=== PATIENT | male | born 1945 | race Caucasian/White ===

== ENCOUNTER → 2017-01-08 | Outpatient (CLI) | payer MEDICARE, OTHER ==
[~2017-01-08] MED LIST: ASPI-515 PO
== END | disposition home or self-care (01) ==
LOC: CFH 10:29
PROVIDERS: ATTEND Internal Medicine Cardiovascular Disease
DX: R93.1 Abnormal findings on diagnostic imaging of heart and coronary circulation (principal); R00.2 Palpitations
CPT/HCPCS: 36415; 84436; 84481

== ENCOUNTER → 2017-02-07 | Outpatient (CLI) | payer MEDICARE, OTHER | END | disposition home or self-care (01) | LOC: CFH 07:54 | PROVIDERS: ATTEND Internal Medicine Cardiovascular Disease | DX: I25.9 Chronic ischemic heart disease, unspecified (principal); I49.3 Ventricular premature depolarization | CPT/HCPCS: 78452; 93017; A9502 ==

== ENCOUNTER → 2019-10-13 | Outpatient (CLI) | payer MEDICARE, OTHER ==
[~2019-10-13] MED LIST changes: +REGADENOSON 0.4 MG/5 ML SYRINGE ONE
== END | disposition home or self-care (01) ==
LOC: CFH 08:00
PROVIDERS: ATTEND Internal Medicine Cardiovascular Disease
DX: R93.1 Abnormal findings on diagnostic imaging of heart and coronary circulation (principal); R00.2 Palpitations
CPT/HCPCS: 78452; 93017; A9502; J2785